=== PATIENT | female | born 1960 | race Caucasian/White ===

== ENCOUNTER 2021-04-12 10:46 | Day surgery (SDC) | payer MEDICAID ==
[2021-04-07 16:51] LABS: BASOPHILS % (AUTO) 0.7 % (0-1); EOSINOPHILS # (AUTO) 0.1 X10'3 (0-0.9); HEMATOCRIT 37.6 % (35.0-45.0); LYMPHOCYTES % (AUTO) 40.2 % (21-51); MEAN CORPUSCULAR HEMOGLOBIN 29.8 PG (27.0-31.0); MEAN CORPUSCULAR HGB CONC 34.5 g/dL (33.0-36.5); MEAN CORPUSCULAR VOLUME 86.4 FL (78-98); MEAN PLATELET VOLUME 8.1 FL (7.4-10.4); MONOCYTES # (AUTO) 0.4 X10'3 (0-0.9); MONOCYTES % (AUTO) 8.5 % (2-12); NEUTROPHILS # (AUTO) 2.4 X10'3 (1.8-7.7); NEUTROPHILS % (AUTO) 47.6 % (42-75); PLATELET COUNT 279 X10'3 (140-440); RED BLOOD COUNT 4.35 X10'6 (4.20-5.60); RED CELL DISTRIBUTION WIDTH 13.6 % (11.5-14.5)
[2021-04-07 17:01] LABS: ALBUMIN 3.9 G/DL (3.4-5.0); ANION GAP 7 (8-16); BLOOD UREA NITROGEN 10 MG/DL (7-18); BUN/CREATININE RATIO 13.3 (6.6-38.0); CALCIUM 8.7 MG/DL (8.5-10.1); CHLORIDE 106 MMOL/L (99-107); CREATININE 0.75 MG/DL (0.40-0.90); GLUCOSE 96 MG/DL (70-104); POTASSIUM 3.2 MMOL/L (3.5-5.1); SODIUM 144 MMOL/L (135-145); eGFR 79 ML/MIN
[2021-04-07 17:03] LABS: PARTIAL THROMBOPLASTIN TIME 27 SECONDS (22-32)
[~2021-04-12] VITALS: Ht 154.9 cm; Wt 74.1 kg
[2021-04-12] VITALS (9 sets, daily range): BP systolic 94–134; BP diastolic 44–83
[~2021-04-12 10:46] MED LIST: ANAS1TAB10 PO; LANS15CA14 PO; LORA10TA7 PO; MELO-100 PO; MINO100T PO; VENL-191 PO
[2021-04-12] MEDS ORDERED: LORazepam 0.5 MG tablet PO PRN (11:05)
[2021-04-12] MEDS ORDERED: normal saline 1,000 ML IV SCH (11:05)
[2021-04-12] MEDS ORDERED: LIDOcaine/PRILOcaine 5gm cream TP ONE (11:05)
[2021-04-12] MEDS ORDERED: diphenhydrAMINE 25mg capsule PO PRN (11:05)
[2021-04-12] MEDS ORDERED: ASCO500C18 PO (12:42)
[2021-04-12] MEDS ORDERED: OMEP-50 PO (12:42)
[2021-04-12] MEDS ORDERED: LORA-269 PO (12:42)
[2021-04-12] MEDS ORDERED: CHOL10006 PO (12:42)
[2021-04-12] MEDS ORDERED: ZINC25CA PO (12:42)
[2021-04-12] MEDS ORDERED: FLUT16SP2 BOTHNARES (12:42)
[2021-04-12] MEDS ORDERED: FLUO40CA10 PO (12:42)
[2021-04-12] MEDS ORDERED: ALB0.5UD IH (12:42)
[2021-04-12] MEDS ORDERED: MULT-1085 PO (12:42)
[2021-04-12] MEDS ORDERED: verapamil 2.5 mg/ml inj IV ONE (13:04)
[2021-04-12] MEDS ORDERED: nitroGLYCERIN-Tridil 50MG/D5W 250 ML IV ONE (13:04)
[2021-04-12] MEDS ORDERED: fentaNYL/PF 50MCG/1 ML 2ML syringe ONE (13:05)
[2021-04-12] MEDS ORDERED: heparin 1,000unit/ml 10ml vial 10 ML ONE (13:06)
[2021-04-12] MEDS ORDERED: iohexol 350MG/ML 100ml bottle IV ONE (13:06)
[2021-04-12] MEDS ORDERED: LIDOcaine 1% (10mg/ml)w/preservative injection 20ml MDV ONE (13:06)
[2021-04-12] MEDS ORDERED: midazolam 1 mg/ML 2ml injection ONE ×2 (13:07→13:48)
[2021-04-12] MEDS ORDERED: OXAZEpam 15mg capsule PO PRN (14:35)
[2021-04-12] MEDS ORDERED: ondansetron/PF 4mg/2ml inj IV PRN (14:35)
[2021-04-12] MEDS ORDERED: HYDROcodone/acetaminophen 5mg/325mg tablet PO PRN (14:35)
[2021-04-12] MEDS ORDERED: proCHLORperazine 10 MG/2 ml inj IV PRN (14:35)
[2021-04-12] MEDS ORDERED: HYDROcodone/acetaminophen 10/325mg tab PO PRN (14:35)
== END 2021-04-12 17:00 | disposition home or self-care (01) ==
LOC: SSTAY O 10:46
PROVIDERS: ATTEND Internal Medicine Interventional Cardiology
DX: R94.39 Abnormal result of other cardiovascular function study (principal); R07.89 Other chest pain; I25.10 Atherosclerotic heart disease of native coronary artery without angina pectoris; E78.5 Hyperlipidemia, unspecified; Z79.01 Long term (current) use of anticoagulants; Z87.891 Personal history of nicotine dependence
CPT/HCPCS: 36415; 80048; 85025; 85610; 85730; 93005; 93458; 99152; C1769; C1894; J1644; J2001; J2250; J3010; J7030; Q0163; Q9967; 99153; A4620; J3490